=== PATIENT | female | born 1980 | race Caucasian/White ===

== ENCOUNTER 2017-09-05 11:47 | Emergency (ER) | payer BC ==
[~2017-09-05] VITALS: Ht 170.2 cm; Wt 72.6 kg
[2017-09-05] MEDS ORDERED: Morphine Sulfate 4mg/ml Inj IM ONE (12:30)
[2017-09-05] MEDS ORDERED: IBUPROFEN600 MG ORAL (12:32)
--- NOTE | 2017-09-05 12:32 | Emergency Room Report ---
History of Present Illness General Chief Complaint: Upper Extremity Injury Source: Patient Present Illness HPI 36-year-old female presents to the emergency department complaining of 10 out of 10 in severity localized right middle finger pain with deformity status post mechanical trip and fall. Patient reports she is right-hand dominant. Patient reports some numbness about the joint that appears to be dislocated. Denies numbness tingling or loss of sensation or gross motor movements of the extremities, incontinence of bowel or bladder. Denies CP, Palpitations, LOC, AMS , dizziness, Changes in Vision, Sensation, paresthesias, or a sudden severe headache. Allergies: Coded Allergies: No Known Allergies (Unverified , 09/05/17) Patient History Past Medical History: see triage record Past Surgical History: none Pertinent Family History: none Now: No Immunizations: UTD Reviewed Nursing Documentation: PMH: Agreed, PSxH: Agreed Nursing Documentation-PMH Past Medical History: No Stated History Review of Systems All Other Systems: negative except mentioned in HPI Physical Exam Vital Signs Date Time Temp Pulse Resp B/P (MAP) Pulse Ox O2 Delivery O2 Flow Rate FiO2 09/05/17 12:19 98.4 81 20 120/71 98 Room Air Sp02 EP Interpretation: reviewed, normal General Appearance: no apparent distress, alert, GCS 15, non-toxic Head: normocephalic, atraumatic Eyes: bilateral eye normal inspection, bilateral eye PERRL ENT: hearing grossly normal, normal voice Neck: full range of motion Respiratory: lungs clear, normal breath sounds, speaking full sentences Cardiovascular #1: regular rate, rhythm, normal capillary refill Rectal: deferred Musculoskeletal: back normal, gait/station normal, normal range of motion, tender - TTP to PIP of RMF, mild swelling noted, obvious deformity noted, good cap refill, NVI Neurologic: alert, oriented x3, responsive, motor strength/tone normal, sensory intact, speech normal Psychiatric: judgement/insight normal, memory normal, mood/affect normal Skin: normal color, no rash, warm/dry, well hydrated Procedures Joint Reduction Joint Reduction : Consent: Verbal Joint Reduction Site: other - right middle finger PIP Procedural Sedation: No Reduction Attempts: Other - two in quick concession Pre-Procedure NV Exam: Yes Post-Procedure NV Exam: Yes Post Joint Reduction Film: joint reduced Patient Tolerated: Well Complications: None Progress Reduction Procedure: -Verbal permission was obtained. - no anesthesia was used. -Two attempts were made to reduce the dislocated finger using traction and digital manipulation of the bones. -Pt. tolerated the Procedure well. -finger splint is applied to the right middle finger then rob taped by boiler/chiller technician , patient remained neurovascularly intact. -Patient is placed in a right arm sling, and remained neurovascularly intact Medical Decision Making PA Attestation Dr. Taylor is my supervising Physician whom patient management has been discussed with. Diagnostic Impression: Primary Impression: Dislocation, finger, interphalangeal joint Qualified Codes: S63.279A - Dislocation of unspecified interphalangeal joint of unspecified finger, initial encounter ER Course 36-year-old female presents to the emergency department complaining of 10 out of 10 in severity localized right middle finger pain with deformity status post mechanical trip and fall. Patient reports she is right-hand dominant. Patient reports some numbness about the joint that appears to be dislocated. Denies numbness tingling or loss of sensation or gross motor movements of the extremities, incontinence of bowel or bladder. Denies CP, Palpitations, LOC, AMS , dizziness, Changes in Vision, Sensation, paresthesias, or a sudden severe headache. Ddx considered but are not limited to Fracture, dislocation, contusion, Sprain/ Strain/Spasm, Vital signs: are WNL, pt. is afebrile H&PE are most consistent with musculoskeletal injury ( dislocation) will perform imaging to r/o fractures. Pt. is NVI ORDERS: - X-ray Right hand 3 views - POSITIVE FOR DISLOCATION OF THE PIP OF THE 3rd finger, negative for fx or significant soft tissue injury, per preliminary read in ED by Dr. Taylor - Her interpretation is scribed by PA. - X-ray Right hand 2 views - improvement of anatomical positioning of the PIP of the 3rd finger, negative for fx or significant soft tissue injury, per preliminary read in ED by Dr. Taylor - Her interpretation is scribed by PA. ED INTERVENTIONS: - Pt. given Ice pack. - Morphine IM -Manual Reduction of RMF PIP joint. ---see procedure noted. - Finger Splint applied to the Right Middle Finger by boiler/chiller technician. Pt. remains neurovascularly intact. DISCHARGE: At this time pt. is stable for d/c to home. Will provide printed patient care instructions, and any necessary prescriptions. Care plan and follow up instructions have been discussed with the patient prior to discharge. Last Vital Signs Date Time Temp Pulse Resp B/P (MAP) Pulse Ox O2 Delivery O2 Flow Rate FiO2 09/05/17 12:19 98.4 81 20 120/71 98 Room Air Disposition: HOME, SELF-CARE Condition: Stable Scripts Ibuprofen* (MOTRIN*) 600 Mg Tablet 600 MG ORAL THREE TIMES A DAY, #30 TAB 0 Refills Prov: Blanca Lutz 09/05/17 Departure Forms: Return to Work Return to Work Date: Sep 06, 2017 Work Restrictions: No Heavy Lifting Other Restrictions: light duty, limited use of right hand x 1 week. Return to Full Activity: Sep 13, 2017 Patient Instructions: Finger or Thumb Dislocation Additional Instructions: Take medications as directed. Follow up with a Primary Care Provider in 3-5 days, even if your symptoms have resolved. --Please review list of primary care clinics, if you do not already have a primary care provider Return sooner to ED if new symptoms occur, or current symptoms become worse. - Please note that this Emergency Department Report was dictated using [employer]ilent[employer] service assistant technology software, occasionally this can lead to erroneous entry secondary to interpretation by the dictation equipment. Blanca Lutz Sep 05, 2017 12:32
[2017-09-05 13:35] VITALS: BP 133/80
--- NOTE | 2017-09-05 14:22 | Diagnostic Imaging Report ---
Indication: PAIN, status post reduction of third digit dislocation Technique: 2 views right hand Comparison: none Findings: Interim reduction of previously demonstrated dislocated third proximal interphalangeal joint. Now satisfactory normal bony alignment. No definite underlying fracture deformity demonstrated. Impression: Interim successful reduction of previously demonstrated third proximal interphalangeal joint dislocation.
--- NOTE | 2017-09-05 14:27 | Diagnostic Imaging Report ---
Indication: PAIN Technique: 3 views right hand Comparison: none Findings: There is dislocation of the third proximal interphalangeal joint. The joint is dislocated posteriorly, with the middle phalanx angulated posteriorly and medially. No definite fracture demonstrated. The joint spaces are preserved. Impression: Positive for third proximal interphalangeal joint dislocation
== END 2017-09-05 13:35 | disposition home or self-care (01) ==
LOC: EMR 13:05
DX: S63.282A Dislocation of proximal interphalangeal joint of right middle finger, initial encounter (principal); W01.0XXA Fall on same level from slipping, tripping and stumbling without subsequent striking against object, initial encounter; Y92.89 Other specified places as the place of occurrence of the external cause
CPT/HCPCS: 26770; 73120; 73130; 96372; 99284; J2270